=== PATIENT | male | born 1935 ===

== ENCOUNTER 2017-07-10 10:05 | Emergency (ER) | payer MEDICARE ==
[2017-07-10 10:08] VITALS: BMI 20.5
[2017-07-10 10:10] VITALS: BP 128/79; PULSE 109; RESP 16; O2SAT 96
--- NOTE | 2017-07-10 10:34 | ED PDOC ---
HPI: General Adult Time Seen by Provider: 07/10/17 10:28 Chief Complaint (Nursing): Flu-like Symptoms History Per: Patient Onset/Duration Of Symptoms: Days (1) Current Symptoms Are (Timing): Still Present Severity: Moderate Pain Scale Rating Of: 3 Additional Complaint(s): Sore throat, fever body aches and nonproductive cough since yesterady. Exposed to friend positve flu a. No vomiting or SOB Past Medical History Vital Signs: Last Vital Signs Temp 100.1 F H 07/10/17 10:09 Pulse 109 H 07/10/17 10:09 Resp 16 07/10/17 10:09 BP 128/79 07/10/17 10:09 Pulse Ox 96 07/10/17 10:09 - Medical History PMH: HTN (Gastric ulcer repair) - Family History Family History: States: Unknown Family Hx - Immunization History Hx Tetanus Toxoid Vaccination: No Hx Influenza Vaccination: No Hx Pneumococcal Vaccination: No - Home Medications Home Medications: Ambulatory Orders Medication Instructions Recorded Acetaminophen/Oxycodone Hydr 1 tab PO Q6 PRN #15 tab 01/28/14 [Percocet 325 mg-5 mg] Cephalexin [Keflex] 500 mg PO BID #14 cap 07/07/14 Meclizine [Meclizine*] 25 mg PO DAILY #30 tab 07/07/14 Oseltamivir [Tamiflu] 75 mg PO BID #10 dose 07/10/17 - Allergies Allergies/Adverse Reactions: Allergies Allergy/AdvReac Type Severity Reaction Status Date / Time No Known Allergies Allergy Verified 01/28/14 13:43 Review of Systems Constitutional: Positive for: Fever, Malaise ENT: Positive for: Throat Pain Respiratory: Positive for: Cough. Negative for: Shortness of Breath Physical Exam - Physical Exam Appears: Positive for: Non-toxic, No Acute Distress Skin: Positive for: Normal Color, Warm, DRY ENT: Positive for: Normal ENT Inspection Neck: Positive for: Normal, Painless ROM Cardiovascular/Chest: Positive for: Regular Rate, Rhythm Respiratory: Positive for: CNT, Normal Breath Sounds Extremity: Positive for: Normal ROM Neurologic/Psych: Positive for: Alert, Oriented. Negative for: Motor/Sensory Deficits - ECG O2 Sat by Pulse Oximetry: 96 Disposition - Clinical Impression Clinical Impression: Influenza, Influenza-like symptoms - Patient ED Disposition Is Patient to be Admitted: No Counseled Patient/Family Regarding: Diagnosis, Need For Followup, Rx Given - Disposition Referrals: [facility] [place] [Outside] Disposition: Routine/Home Disposition Time: 10:34 Condition: FAIR Prescriptions: Oseltamivir [Tamiflu] 75 mg PO BID #10 dose Instructions: Flu, Adult (DC)
[2017-07-10 11:16] VITALS: TEMP 99
== END 2017-07-10 11:16 | disposition home or self-care (01) ==
LOC: H.ER 10:05
DX: J11.1 Influenza due to unidentified influenza virus with other respiratory manifestations (principal)

== ENCOUNTER 2017-07-12 10:11 | Observation (INO) | payer MEDICARE ==
[2017-07-12 10:47] VITALS: BMI 20.7
[2017-07-12 12:02] LABS: VENOUS BLOOD GAS PCO2 45 mmHg (40-60); VENOUS BLOOD GAS PO2 20 mm/Hg (30-55); VENOUS BLOOD PH 7.42 (7.32-7.43)
[2017-07-12 12:12] LABS: BASO % 0.2 % (0.0-2.0); EOS # 0.1 K/uL (0.0-0.7); EOS % 1.3 % (0.0-4.0); HEMOGLOBIN 14.6 g/dL (12.0-18.0); LYMPH # 1.1 K/uL (1.0-4.3); MEAN CELL VOLUME 90.3 fl (80.0-94.0); MEAN CORPUSCULAR HEMOGLOBIN 29.8 pg (27.0-31.0); MEAN CORPUSCULAR HGB CONC 32.9 g/dL (33.0-37.0); MEAN PLATELET VOLUME 8.6 fl (7.2-11.7); MONO # 1.1 K/uL (0.0-0.8); MONO % 12.7 % (0.0-10.0); NEUT # 6.2 K/uL (1.8-7.0); NEUT % 72.8 % (50.0-75.0); NRBC % 0.3 % (0.0-0.0); RBC 4.91 Mil/uL (4.40-5.90); RED CELL DISTRIBUTION WIDTH 14.2 % (11.5-14.5); WHITE BLOOD COUNT 8.5 K/uL (4.8-10.8)
[2017-07-12 12:20] LABS: ALB/GLOB RATIO 1.1 (1.0-2.1); ALBUMIN 4.3 g/dL (3.5-5.0); ALT/SGPT 58 U/L (21-72); AST/SGOT 54 U/L (17-59); BLOOD UREA NITROGEN 21 mg/dl (9-20); CALCIUM 8.9 mg/dL (8.4-10.2); GFR AFRICAN-AMERICAN > 60; GFR NON-AFRICAN AMERICAN > 60
[2017-07-12 13:54] VITALS: RESP 18
--- NOTE | 2017-07-12 14:01 | RAD ---
HISTORY: cough, fever COMPARISON: No prior. TECHNIQUE: Chest PA and lateral FINDINGS: LUNGS: No active pulmonary disease. PLEURA: No significant pleural effusion identified. No pneumothorax apparent. CARDIOVASCULAR: Normal. OSSEOUS STRUCTURES: No significant abnormalities. VISUALIZED UPPER ABDOMEN: Normal. OTHER FINDINGS: None. IMPRESSION: No active disease.
[2017-07-12] MEDS ORDERED: Sodium Chloride 0.9% 1,000 ML IV STA (14:05)
--- NOTE | 2017-07-12 14:05 | ED PDOC ---
HPI: General Adult Time Seen by Provider: 07/12/17 10:34 Chief Complaint (Nursing): Flu-like Symptoms Chief Complaint (Provider): Continued cough and fever History Per: Patient History/Exam Limitations: no limitations Onset/Duration Of Symptoms: Days (5) Additional Complaint(s): 81 yo male with history of HTN and thyroid disease presents with continued cough and fever at home. Pt taking tamiflu for 2 days. Was seen in ER todays ago and diagnosed with influenza. Past Medical History Reviewed: Historical Data, Nursing Documentation, Vital Signs Vital Signs: Last Vital Signs Temp 99.6 F 07/12/17 12:30 Pulse 60 07/12/17 15:34 Resp 18 07/12/17 15:34 BP 97/63 L 07/12/17 15:34 Pulse Ox 97 07/12/17 15:34 - Medical History PMH: HTN (Gastric ulcer repair) - Surgical History Surgical History: No Surg Hx - Family History Family History: States: Unknown Family Hx - Living Arrangements Living Arrangements: With Family - Social History Current smoker - smoking cessation education provided: No - Immunization History Hx Tetanus Toxoid Vaccination: No Hx Influenza Vaccination: No Hx Pneumococcal Vaccination: No - Home Medications Home Medications: Ambulatory Orders Medication Instructions Recorded Acetaminophen/Oxycodone Hydr 1 tab PO Q6 PRN #15 tab 01/28/14 [Percocet 325 mg-5 mg] Cephalexin [Keflex] 500 mg PO BID #14 cap 07/07/14 Meclizine [Meclizine*] 25 mg PO DAILY #30 tab 07/07/14 Oseltamivir [Tamiflu] 75 mg PO BID #10 dose 07/10/17 - Allergies Allergies/Adverse Reactions: Allergies Allergy/AdvReac Type Severity Reaction Status Date / Time No Known Allergies Allergy Verified 01/28/14 13:43 Review of Systems ROS Statement: Except As Marked, All Systems Reviewed And Found Negative Constitutional: Positive for: Fever, Chills, Malaise Cardiovascular: Negative for: Chest Pain, Palpitations Respiratory: Positive for: Cough. Negative for: Shortness of Breath Physical Exam - Reviewed Nursing Documentation Reviewed: Yes Vital Signs Reviewed: Yes - Physical Exam Appears: Positive for: Well, Non-toxic, No Acute Distress Head Exam: Positive for: ATRAUMATIC, NORMAL INSPECTION, NORMOCEPHALIC Skin: Positive for: Normal Color, Warm, DRY Eye Exam: Positive for: Normal appearance ENT: Positive for: Normal ENT Inspection Neck: Positive for: Normal, Painless ROM Cardiovascular/Chest: Positive for: Regular Rate, Rhythm Respiratory: Positive for: Normal Breath Sounds. Negative for: Accessory Muscle Use, Respiratory Distress Back: Positive for: Normal Inspection Extremity: Positive for: Normal ROM Neurologic/Psych: Positive for: Alert, Oriented - Laboratory Results Result Diagrams: 07/12/17 12:00 07/12/17 12:00 - ECG O2 Sat by Pulse Oximetry: 98 Disposition - Clinical Impression Clinical Impression: Influenza-like symptoms, Dehydration - Disposition Referrals: Jaz Gonzalez MD [Primary Care Provider] - Disposition: Routine/Home Disposition Time: 14:54 Condition: STABLE Forms: [facility] ([place])
[2017-07-12] MEDS ORDERED: Lactated Ringer's 1,000 ML IV SCH (14:30)
[2017-07-13 05:52] LABS: HEMOGLOBIN 13.2 g/dL (12.0-18.0); MEAN CELL VOLUME 91.8 fl (80.0-94.0); MEAN CORPUSCULAR HEMOGLOBIN 29.8 pg (27.0-31.0); MEAN CORPUSCULAR HGB CONC 32.5 g/dL (33.0-37.0); RBC 4.43 Mil/uL (4.40-5.90); WHITE BLOOD COUNT 6.4 K/uL (4.8-10.8)
[2017-07-13 06:11] LABS: LDL CHOLESTEROL 82 mg/dL (0-129)
[2017-07-13 06:13] LABS: ALB/GLOB RATIO 1.1 (1.0-2.1); ALBUMIN 3.5 g/dL (3.5-5.0); ALT/SGPT 45 U/L (21-72); AST/SGOT 47 U/L (17-59); BLOOD UREA NITROGEN 17 mg/dl (9-20); CALCIUM 8.4 mg/dL (8.4-10.2); GFR AFRICAN-AMERICAN > 60; GFR NON-AFRICAN AMERICAN > 60; HDL CHOLESTEROL 31 MG/DL (30-70)
[2017-07-13 06:15] LABS: T4 11.9 ug/dl (5.5-11.0)
[2017-07-13 06:29] LABS: T3 0.965 nmol/L (1.49-2.60)
--- NOTE | 2017-07-13 08:59 | CARD ---
APPROVED REPORT EKG Measurement Heart [id number] <Conclusion> Normal sinus rhythm Normal ECG
[2017-07-13] MEDS ORDERED: HCTZ/Losartan 12.5/50 Tab PO SCH (09:00)
[2017-07-13 12:08] VITALS: BP 150/68; PULSE 77; TEMP 97.7; O2SAT 100
--- NOTE | 2017-07-14 07:52 | HP ---
DATE OF ADMISSION: 07/13/2017 CHIEF COMPLAINT: Fever and cough for few days. HISTORY OF PRESENT ILLNESS: This is a 81-year-old male known case of hypertension and peptic ulcer disease who was having cough and fever for few days, which did not get better, so the patient was brought to the Emergency Room. The patient was taking Tamiflu and despite that the patient continued to have symptoms. The patient also had visit to the Emergency Room and was diagnosed with influenza, but symptom did not get better. The patient was brought to the Emergency Room and was admitted for further management. REVIEW OF SYSTEMS: Positive for cough, fever, generalized malaise weakness and feeling dehydrated. Review of systems otherwise is negative for headache, dizziness, syncope, loss of consciousness, chest pain, shortness of breath, nausea, vomiting, diarrhea, constipation, anemia, joint or extremity pain, but does have generalized body pain. Review of systems of all other organ system is unremarkable. PAST MEDICAL HISTORY: Significant for hypertension and peptic ulcer disease. PAST SURGICAL HISTORY: Remarkable for gastric ulcer repair. PERSONAL HISTORY: The patient is currently nonsmoker and nondrinker. No substance abuse. MEDICATIONS: The patient is on Percocet, Keflex, meclizine and Tamiflu. ALLERGIES: THE PATIENT IS NOT ALLERGIC TO ANY MEDICATIONS. FAMILY HISTORY: Noncontributory. PHYSICAL EXAMINATION: GENERAL: A well-built and well-nourished 81-year-old male in no acute distress. VITAL SIGNS: Temperature of 99.1, pulse of 80, respirations of 18, and blood pressure of 119/82. HEENT: Pupils are reactive to light. No JVD. No thyromegaly. No lymphadenopathy. No nystagmus. Normocephalic and atraumatic skull. HEART: S1 and S2, normal and regular. No significant murmur, gallop or rub is heard. LUNGS: Exam shows good bilateral air exchange. No rales or rhonchi. ABDOMEN: Soft and nontender. No organomegaly. No fluid. Bowel sounds are present and normal. GENITALIA: Appropriate for the patient age. EXTREMITIES: No edema. No calf swelling. No tenderness. No acute ischemic. CENTRAL NERVOUS SYSTEM: The patient is alert, awake, and oriented x3. There is no sign of any acute gross focal motor or sensory neurological deficits. DIAGNOSTIC DATA: Available diagnostic data reviewed. WBC of 8.5, hemoglobin of , hematocrit of 44.4, and platelets of 139. Lactic acid level is normal. Sodium of 139, potassium of 4.0, chloride of 102, bicarbonate of 27, BUN of 17, and creatinine of 1.1. BUN yesterday was and has been improved with hydration. Vitamin B12 is 390. TSH level is 19. Chest x-ray shows no active disease. EKG shows normal sinus rhythm without any acute ST-T changes. ADMITTING IMPRESSION: Influenza, dehydration secondary to influenza, and hypertension. PLAN: As ordered. Case and plan discussed with patient. Paulie Jauregui MD
== END 2017-07-13 15:25 | disposition home or self-care (01) ==
LOC: H.ER 10:11 → H.ERHOLD 15:30 → H.TEL 21:08
PROVIDERS: ADMIT Internal Medicine; ATTEND Internal Medicine
DX: J11.1 Influenza due to unidentified influenza virus with other respiratory manifestations (principal); E86.0 Dehydration; I10 Essential (primary) hypertension; Z87.11 Personal history of peptic ulcer disease
CPT/HCPCS: 36415; 71046; 80053; 80061; 82607; 82803; 84436; 84443; 84480; 85025; 85027; 87040; 93005; 99285; G0378; J7120